=== PATIENT | male | born 1980 | race Caucasian/White ===

== ENCOUNTER 2017-12-15 12:29 | Emergency (ER) | payer OTHER ==
[~2017-12-15] VITALS: Ht 182.9 cm; Wt 134.0 kg
[2017-12-15 12:29] VITALS: BP 133/78; PULSE 86; RESP 18; TEMP 98.5; O2SAT 97
[2017-12-15] MEDS ORDERED: IOHEXOL 350 MG/ML 10 ML VIAL (for RAD DIAG) IVCONTRAST ONE (12:30)
[2017-12-15] MEDS ORDERED: SODIUM CHLORIDE 0.9% FLUSH 10 ML FLUSH IVF PRN (13:15)
[2017-12-15] MEDS ORDERED: ASPIRIN 81 MG CHEW TAB PO ONE (13:15)
--- NOTE | 2017-12-15 13:22 | RADRPT ---
EXAM DATE/TIME: 12/15/2017 13:13 [facility] COMPARISON: No previous studies available for comparison. INDICATIONS : Chest pain when coughing. MEDICAL HISTORY : history of blood clot in his leg. SURGICAL HISTORY : None. ENCOUNTER: Initial ACUITY: 2 days PAIN SCORE: 9/10 LOCATION: Left chest FINDINGS: A single view of the chest demonstrates minimal density right midlung. Left lung clear. Heart normal size. The cardiomediastinal contours are unremarkable. Osseous structures are intact. CONCLUSION: 1. Minimal density right midlung likely infiltrate. Treatment and followup recommended. Yoel Mejias MD on December 15, 2017 at 13:19 Board Certified Radiologist. This report was verified electronically.
--- NOTE | 2017-12-15 13:25 | PD ---
HPI Chief Complaint: Chest Pain Time Seen by Provider: 12:58 Travel History International Travel<30 days: No Contact w/Intl Traveler<30days: No Traveled to known affect area: No History of Present Illness HPI Patient comes emergency Department complaining of left-sided chest pain that began over the weekend while playing football when he fell hurting his knee and left side of his chest. Pain initially seemed to get better however is been getting progressively worse over the past couple of days. Patient describes pain as sharp stabbing pain without radiation. Patient states he's been feeling short of breath over the past 2 days. Patient reports his daughter is sick as well and is not sure if he just catching something from her or something else causing the pain. Patient denies any history of cardiac disease or family history of cardiac disease or sudden before age 40. Patient reports he has a history of a PE diagnosed 2 years ago and is on Xarelto for this. Patient reports he takes his medication regularly. Denies any back pain , fevers, neck pain, sore throat, numbness or tingling anywhere, abdominal pain , numbness or tingling anywhere, or weakness. Patient reports associated cough that makes the pain worse. Reports cough is occasionally productive with greenish phlegm. Patient denies being homeless or traveling outside the country. PFSH Past Medical History Hx Anticoagulant Therapy: Yes Diabetes: Yes Social History Alcohol Use: No Tobacco Use: No Substance Use: No Allergies-Medications (Allergen,Severity, Reaction): Coded Allergies: No Known Allergies (Unverified , 12/15/17) Reported Meds & Prescriptions Reported Meds & Active Scripts Active Ventolin Hfa 18 GM Inh (Albuterol Sulfate) 90 Mcg/Act Aer 2 Puff INH Q4H PRN Levaquin (Levofloxacin) 750 Mg Tablet 750 Mg PO DAILY 4 Days Start 12/16/17 Reported Xarelto (Rivaroxaban) 10 Mg Tab 10 Mg PO DAILY Metformin (Metformin HCl) 1,000 Mg Tab 1,000 Mg PO BIDPC Glipizide 10 Mg Tab 10 Mg PO BIDAC Take 30 minutes before a meal Lisinopril 10 Mg Tab 10 Mg PO DAILY Review of Systems Except as stated in HPI: all other systems reviewed are Neg Physical Exam Narrative GENERAL: Well-developed, overly nourished, in no acute distress, and non-ill appearing. SKIN: Focused skin assessment warm and dry. HEAD: Atraumatic. Normocephalic. EYES: Pupils equal and round. EOMI. No scleral icterus. No injection or drainage. ENT: No nasal bleeding or discharge. Mucous membranes pink and moist. NECK: Trachea midline. No JVD. Supple. No nuclear rigidity. CARDIOVASCULAR: Regular rate and rhythm. No murmur appreciated. RESPIRATORY: No accessory muscle use. No respiratory distress. Scant rhonchi noted right lower lobe improves with cough.. GASTROINTESTINAL: Abdomen soft, non-tender, nondistended, and no guarding. Hepatic and splenic margins not palpable. No pulsatile mass. MUSCULOSKELETAL: No obvious deformities. No clubbing. No cyanosis. No edema. Full range of motion. NEUROLOGICAL: Awake and alert. No obvious cranial nerve deficits. Motor grossly within normal limits. Normal speech. PSYCHIATRIC: Appropriate mood and affect; insight and judgment normal. Data Data Last Documented VS Vital Signs Date Time Temp Pulse Resp B/P (MAP) Pulse Ox O2 Delivery O2 Flow Rate FiO2 12/15/17 18:03 86 19 150/77 (101) 98 12/15/17 13:54 Nasal Cannula 2.00 12/15/17 12:29 98.5 Orders Orders Electrocardiogram (12/15/17 13:10) Basic Metabolic Panel (Bmp) (12/15/17 13:10) Ckmb (Isoenzyme) Profile (12/15/17 13:10) Complete Blood Count With Diff (12/15/17 13:10) Magnesium (Mg) (12/15/17 13:10) Prothrombin Time / Inr (Pt) (12/15/17 13:10) Act Partial Throm Time (Ptt) (12/15/17 13:10) Troponin I (12/15/17 13:10) Chest, Single Ap (12/15/17 13:10) Ecg Monitoring (12/15/17 13:10) Bilateral Bp Monitoring (12/15/17 13:10) Iv Access Insert/Monitor (12/15/17 13:10) Oximetry (12/15/17 13:10) Oxygen Administration (12/15/17 13:10) Aspirin Chew (Aspirin Chew) (12/15/17 13:15) Sodium Chloride 0.9% Flush (Ns Flush) (12/15/17 13:15) Ct Pulmonary Angiogram (12/15/17 13:10) Influenzae A/B Antigen (12/15/17 13:10) CKMB (12/15/17 13:50) CKMB% (12/15/17 13:50) Iohexol 350 Inj (Omnipaque 350 Inj) (12/15/17 12:30) Levofloxacin 750 Mg Premix Inj (Levaquin (12/15/17 16:00) Albuterol-Ipratropium Neb (Duoneb Neb) (12/15/17 16:00) Ed Discharge Order (12/15/17 16:01) Labs Laboratory Tests Test 12/15/17 13:50 White Blood Count 7.6 TH/MM3 Red Blood Count 5.01 MIL/MM3 Hemoglobin 14.6 GM/DL Hematocrit 41.2 % Mean Corpuscular Volume 82.1 FL Mean Corpuscular Hemoglobin 29.1 PG Mean Corpuscular Hemoglobin Concent 35.5 % Red Cell Distribution Width 13.9 % Platelet Count 147 TH/MM3 Mean Platelet Volume 9.2 FL Neutrophils (%) (Auto) 67.4 % Lymphocytes (%) (Auto) 19.6 % Monocytes (%) (Auto) 10.5 % Eosinophils (%) (Auto) 2.0 % Basophils (%) (Auto) 0.5 % Neutrophils # (Auto) 5.1 TH/MM3 Lymphocytes # (Auto) 1.5 TH/MM3 Monocytes # (Auto) 0.8 TH/MM3 Eosinophils # (Auto) 0.2 TH/MM3 Basophils # (Auto) 0.0 TH/MM3 CBC Comment DIFF FINAL Differential Comment Prothrombin Time 11.2 SEC Prothromb Time International Ratio 1.1 RATIO Activated Partial Thromboplast Time 29.4 SEC Blood Urea Nitrogen 12 MG/DL Creatinine 1.03 MG/DL Random Glucose 258 MG/DL Calcium Level 8.6 MG/DL Magnesium Level 1.9 MG/DL Sodium Level 136 MEQ/L Potassium Level 4.0 MEQ/L Chloride Level 101 MEQ/L Carbon Dioxide Level 27.4 MEQ/L Anion Gap 8 MEQ/L Estimat Glomerular Filtration Rate 81 ML/MIN Total Creatine Kinase 116 U/L Creatine Kinase MB LESS THAN 0.5 NG/ML Troponin I LESS THAN 0.02 NG/ML MDM Medical Decision Making Medical Screen Exam Complete: Yes Emergency Medical Condition: Yes Interpretation(s) EKG reviewed by Dr. Connolly shows sinus rhythm with ventricular rate of 85. No STEMI. Last Impressions Chest X-Ray 12/15/170 Signed Impressions: Service Date/Time: Friday, December 15, 2017 13:13 - CONCLUSION: 1. Minimal density right midlung likely infiltrate. Treatment and followup recommended. Yoel Mejias MD CT Angiography 12/15/17 1310 Signed Impressions: Service Date/Time: Friday, December 15, 2017 14:57 - CONCLUSION: 1. No evidence for pulmonary embolism. 2. Prominent consolidation throughout the right upper lobe consistent with pneumonia. 3. Patchy opacity throughout the right upper lobe including a nodular cavitary lesion within the superior segment right lower lobe measuring 11 mm. This is likely bacterial pneumonia although tuberculosis and fungal infections are in the differential. Yoel Mejias MD Differential Diagnosis Acute coronary syndrome, atypical chest pain, PE, pneumonia, pneumothorax, costochondritis, influenza, URI Narrative Course Patients symptom complex is consistent with Pneumonia. The patient is non-ill appearing and is in no respiratory distress and comfortable. The patient moves air well and oxygen saturations are normal. Chest x-ray and CT revealed evidence of pneumonia. The patient looks great and has no significant co morbidities and may be discharged home on outpatient therapy. Plan of care and management were discussed with the patient who agreed with plan. The patient was instructed to follow up with their physician and instructed to return if worsens, progressively worsening shortness of breath or difficulty breathing, persistent fever, chest pains or discomfort, inability to keep medication or fluids down with or without vomiting, or as needed or unable to establish follow up within a timely manner. Patient in no obvious distress upon re-evaluation. All pertinent laboratory/ Radiology result(s) discussed with patient. CT findings are most likely bacterial pneumonia as patient has no risk factors for TB or fungal infection. Discussed patient with Dr. Connolly prior to discharge, who is in agreement with plan of care and disposition. Patient was asked if they wanted to speak to my attending, which the patient did not wish to do at this time. Any questions/concerns in reference to patient diagnosis/condition discussed and clarified prior to patient's discharge. Reinforced sheer importance of close follow up with patient's primary physician or primary care clinic. Instructed patient to return to ED immediately, if symptoms return/worsen. Patient showed understanding of above instructions. Further instructions and recommendations were detailed in discharge paperwork. Patient ambulated without difficulty out of ED at discharge. Diagnosis Primary Impression: Right upper lobe pneumonia Qualified Codes: J18.1 - Lobar pneumonia, unspecified organism Additional Impression: Enlarged lymph node Referrals: [facility] Patient Instructions: Community Acquired Pneumonia (ED), General Instructions, Lymphadenopathy (ED) Additional Instructions: Follow-up with your primary care physician in 3-5 days for reevaluation. Take all medication as prescribed. Return to the emergency department if symptoms get worse. Med/Other Pt SpecificInfo: Prescription(s) given Scripts Albuterol 18 GM Inh (Ventolin Hfa 18 GM Inh) 90 Mcg/Act Aer 2 PUFF INH Q4H Y for SHORTNESS OF BREATH, #1 INHALER 0 Refills Prov: Melo Connolly MD 12/15/17 Levofloxacin (Levaquin) 750 Mg Tablet 750 MG PO DAILY for Infection for 4 Days, #4 TAB 0 Refills Start 12/16/17 Prov: Melo Connolly MD 12/15/17 Disposition: 01 DISCHARGE HOME Condition: Stable Trung Saldana Dec 15, 2017 13:25
[2017-12-15] MEDS ORDERED: GLIP10TA6 PO (13:49)
[2017-12-15] MEDS ORDERED: METF1000 PO (13:49)
[2017-12-15] MEDS ORDERED: XARE10TA PO (13:49)
[2017-12-15] MEDS ORDERED: LISI10TA3 PO (13:49)
[2017-12-15 13:53] VITALS: BP_SYST 129; BP_SYST 134; BP_DIAS 72; BP_DIAS 73; O2SAT 94
[2017-12-15 14:14] LABS: AUTOMATED NEUTROPHIL # 5.1 TH/MM3 (1.8-7.7); BASOPHIL % 0.5 % (0.0-2.0); EOSINOPHIL # 0.2 TH/MM3 (0-0.4); HEMATOCRIT 41.2 % (39.0-51.0); HEMOGLOBIN 14.6 GM/DL (13.0-17.0); LYMPH % 19.6 % (9.0-44.0); LYMPHOCYTE # 1.5 TH/MM3 (1.0-4.8); MEAN CELL VOLUME 82.1 FL (80.0-100.0); MEAN CORPUSCULAR HEMOGLOBIN 29.1 PG (27.0-34.0); MEAN CORPUSCULAR HGB CONC 35.5 % (32.0-36.0); MEAN PLATELET VOLUME 9.2 FL (7.0-11.0); MONO % 10.5 % (0.0-8.0); MONOCYTE # 0.8 TH/MM3 (0-0.9); NEUT % 67.4 % (16.0-70.0); PLATELET COUNT 147 TH/MM3 (150-450); RED BLOOD COUNT 5.01 MIL/MM3 (4.50-5.90); RED CELL DISTRIBUTION WIDTH 13.9 % (11.6-17.2); WHITE BLOOD COUNT 7.6 TH/MM3 (4.0-11.0)
[2017-12-15 14:22] LABS: INTERNATIONAL NORMALIZED RATIO 1.1 RATIO; PROTHROMBIN TIME - PATIENT 11.2 SEC (9.8-11.6)
[2017-12-15 14:28] LABS: BICARBONATE 27.4 MEQ/L (21.0-32.0); BLOOD UREA NITROGEN 12 MG/DL (7-18); CALCIUM 8.6 MG/DL (8.5-10.1); CHLORIDE 101 MEQ/L (98-107); CREATININE 1.03 MG/DL (0.60-1.30); GLOMERULAR FILTRATION RATE 81 ML/MIN (>89); GLUCOSE,RANDOM 258 MG/DL (74-106); MAGNESIUM 1.9 MG/DL (1.5-2.5); SODIUM (NA) 136 MEQ/L (136-145)
[2017-12-15 14:33] LABS: TROPONIN I LESS THAN 0.02 NG/ML (0.02-0.05)
--- NOTE | 2017-12-15 15:42 | RADRPT ---
EXAM DATE/TIME: 12/15/2017 14:57 [facility] COMPARISON: No previous studies available for comparison. INDICATIONS : Left side chest pain, cough. IV CONTRAST: 84 cc Omnipaque 350 (iohexol) IV RADIATION DOSE: 23.24 CTDIvol (mGy) MEDICAL HISTORY : Deep venous thrombosis. Diabetes mellitus type 2. Pulmonary embolism. SURGICAL HISTORY : None. ENCOUNTER: Initial ACUITY: 3 days PAIN SCALE: 5/10 LOCATION: Left chest TECHNIQUE: Volumetric scanning of the chest was performed using a pulmonary embolism protocol MIP images were re constructed. Using automated exposure control and adjustment of the mA and/or kV according to patien t size, radiation dose was kept as low as reasonably achievable to obtain optimal diagnostic quality images. DICOM format image data is available electronically for review and comparison. Follow-up recommendations for detected pulmonary nodules are based at a minimum on nodule size and pa tient risk factors according to Fleischner Society Guidelines. FINDINGS: PULMONARY ARTERIES: No filling defects are seen in the pulmonary arteries through the segmental level. LUNGS: There is prominent consolidation in the right upper lobe. Multiple patchy nodular densities are seen within the right upper lobe including a cavitary nodular density in the superior segment right lower lobe measuring 11 mm. PLEURAE: There is no pleural thickening or pleural effusion. MEDIASTINUM: There is good visualization of the great vessels of the middle mediastinum. There are prominent lymph nodes in the right paratracheal region including one measuring 1.9 cm. Mildly prominent right hilar adenopathy. MUSCULOSKELETAL: Within normal limits for patient age. MISCELLANEOUS: The visualized upper abdominal organs demonstrate no acute abnormality. CONCLUSION: 1. No evidence for pulmonary embolism. 2. Prominent consolidation throughout the right upper lobe consistent with pneumonia. 3. Patchy opacity throughout the right upper lobe including a nodular cavitary lesion within the supe rior segment right lower lobe measuring 11 mm. This is likely bacterial pneumonia although tuberculos is and fungal infections are in the differential. Yoel Mejias MD on December 15, 2017 at 15:36 Board Certified Radiologist. This report was verified electronically.
[2017-12-15] MEDS ORDERED: RESP: ALBUTEROL 2.5 MG/IPRATROPIUM 0.5 MG NEB (SCH) INH ONE (16:00)
[2017-12-15] MEDS ORDERED: LEVOFLOXACIN 750 MG PREMIX INJ 150 ML IV ONE (16:00)
[2017-12-15] MEDS ORDERED: LEVA750T9 PO (16:01)
[2017-12-15] MEDS ORDERED: VENTAER INH (16:01)
[2017-12-15 18:03] VITALS: BP 150/77
--- NOTE | 2017-12-17 00:01 | EKG ---
Date Performed: 12/15/2017 Time Performed: 13:33:43 PTAGE: 37 years EKG: Sinus rhythm NORMAL ECG NO PREVIOUS TRACING DOCTOR: Pablo Diallo Interpretating Date/Time 12/17/2017 00:00:01
== END 2017-12-15 18:03 | disposition home or self-care (01) ==
LOC: NEPC 12:29
DX: J18.9 Pneumonia, unspecified organism (principal); R59.9 Enlarged lymph nodes, unspecified; E11.9 Type 2 diabetes mellitus without complications; Z79.899 Other long term (current) drug therapy
CPT/HCPCS: 71045; 71275; 80048; 82550; 82552; 83735; 84484; 85025; 85610; 85730; 87804; 93005; 94664; 96365; 96366; 99285; J1956; Q9967

== ENCOUNTER → 2018-02-24 | Outpatient (CLI) | payer OTHER ==
[~2018-02-24] MED LIST: GLIP10TA6 PO; LEVA750T9 PO; LISI10TA3 PO; METF1000 PO; VENTAER INH; XARE10TA PO
--- NOTE | 2018-02-24 13:56 | EKG ---
Date Performed: 02/24/2018 Time Performed: 09:20:48 PTAGE: 37 years EKG: Sinus rhythm Since the previous tracing, no significant change noted Normal ECG PREVIOUS TRACING : 12/15/2017 13.33 DOCTOR: Marcie Pozo Interpretating Date/Time 02/24/2018 13:55:39
== END ==
LOC: HCAV 09:04
PROVIDERS: ATTEND Psychiatry & Neurology Child & Adolescent Psychiatry
DX: F33.1 Major depressive disorder, recurrent, moderate (principal); Z79.899 Other long term (current) drug therapy
CPT/HCPCS: 93005